=== PATIENT | female | born 2000 | race Caucasian/White ===

== ENCOUNTER 2019-01-02 19:17 | Emergency (ER) | payer OTHER ==
[~2019-01-02] VITALS: Ht 165.1 cm; Wt 61.2 kg
[2019-01-02] MEDS ORDERED: PNEU16DI2 IM (20:47)
[2019-01-02] MEDS ORDERED: VOLTAREN-XR100 MG PO (20:47)
== END 2019-01-02 20:59 | disposition home or self-care (01) ==
LOC: ER 19:17
DX: M12.571 Traumatic arthropathy, right ankle and foot (principal)